=== PATIENT | male | born 1970 | race Caucasian/White ===

== ENCOUNTER 2019-06-01 23:53 | Observation (INO) ==
[2019-06-01] MEDS ORDERED: Isovue-370 500 ML BOTTLE IVP ONE (23:59)
[2019-06-02 00:17] LABS: INR 0.9; Prothrombin Time 10.4 Seconds (9.4-12.1)
[2019-06-02 00:20] LABS: Activated Partial Thrombo Time 36.8 Seconds (26.0-36.0)
[2019-06-02] MEDS ORDERED: Isovue-370 500 ML BOTTLE IVP ONE (00:22)
[2019-06-02 00:31] LABS: Hematocrit 45.9 % (37.5-50.1); Hemoglobin 15.2 g/dL (12.9-16.9); Mean Corpuscular HGB Conc 33.1 g/dL (31.6-35.5); Mean Corpuscular Hemoglobin 28.7 pg (28.0-33.3); Mean Corpuscular Volume 86.6 fL (83.0-100.0); Mean Platelet Volume 9.6 fL (9.4-12.4); Platelet Count 317 K/mcL (140-400); Red Cell Distribution Width 12.7 % (11.5-14.5); White Blood Count 11.7 K/mcL (4.3-11.1)
[2019-06-02 00:32] LABS: BUN/Creatinine Ratio 9 (6-26); Blood Urea Nitrogen 8 mg/dL (6-20); Calcium 9.4 mg/dL (8.6-10.3); Carbon Dioxide 29 mEq/L (23-29); Chloride 102 mEq/L (98-107); Glucose 138 mg/dL (70-105); Osmolality,Calculated 289 (280-300); Potassium 3.5 mEq/L (3.5-5.1); Sodium 139 mEq/L (136-145); eGFR For African Americans > 60 (> 60); eGFR For Non-African Americans > 60 (> 60)
[2019-06-02] MEDS ORDERED: Naloxone 0.4 MG/ML INJ IVP PRN (02:14)
[2019-06-02] MEDS ORDERED: *HR* Promethazine 25 MG/ML VIAL IVP PRN (02:14)
[2019-06-02] MEDS ORDERED: Mag Hydrox/Al Hydrox/Simeth 30 ML UDC PO PRN (02:14)
[2019-06-02] MEDS ORDERED: Acetaminophen 325 MG TABLET PO PRN (02:14)
[2019-06-02] MEDS ORDERED: Ondansetron ODT 4 MG TAB.RAPDIS SL PRN (02:14)
[2019-06-02] MEDS ORDERED: Gadolinium Contrast Agent (WT Based) IV PRN ×2 (02:18→10:45)
[2019-06-02] MEDS ORDERED: Nicotine 14 MG PATCH.TD24 TD PRN (03:18)
[2019-06-02 04:43] LABS: Basophils # 0.1 K/mcL (0.0-0.2); Basophils % 0.4 %; Eosinophils # 0.2 K/mcL (0.0-0.6); Eosinophils % 1.6 %; Hematocrit 41.7 % (37.5-50.1); Hemoglobin 13.9 g/dL (12.9-16.9); Immature Granulocytes % 0.3 % (0-4); Lymphocytes # 3.1 K/mcL (0.6-4.6); Lymphocytes % 26.7 %; Mean Corpuscular HGB Conc 33.3 g/dL (31.6-35.5); Mean Corpuscular Hemoglobin 28.8 pg (28.0-33.3); Mean Corpuscular Volume 86.5 fL (83.0-100.0); Mean Platelet Volume 9.5 fL (9.4-12.4); Monocytes % 8.9 %; Neutrophils # 7.1 K/mcL (1.6-8.9); Platelet Count 264 K/mcL (140-400); Red Blood Count 4.82 M/mcL (4.19-5.50); Red Cell Distribution Width 12.7 % (11.5-14.5); Segmented Neutrophils % 62.1 %; White Blood Count 11.5 K/mcL (4.3-11.1)
[2019-06-02 04:49] LABS: Activated Partial Thrombo Time 36.3 Seconds (26.0-36.0)
[2019-06-02] MEDS: Aspirin 81 MG TAB.CHEW PO SCH (04:49)
[2019-06-02 05:11] LABS: Troponin I < 0.03 ng/mL (< 0.04)
[2019-06-02 05:14] LABS: Alanine Aminotransferase 23 Units/L (7-52); Albumin 3.9 g/dL (3.5-5.7); Albumin/Globulin Ratio 1.8 (1.1-2.2); Alkaline Phosphatase 84 Units/L (34-104); Aspartate Amino Transferase 15 Units/L (13-39); BUN/Creatinine Ratio 9 (6-26); Bilirubin,Total 0.4 mg/dL (0.3-1.0); Blood Urea Nitrogen 7 mg/dL (6-20); Calcium 8.9 mg/dL (8.6-10.3); Carbon Dioxide 26 mEq/L (23-29); Chloride 104 mEq/L (98-107); Chol/HDL Ratio 4.9 (0-4.9); Cholesterol 141 mg/dL (< 200); Globulin 2.2 g/dL (2.4-3.5); Glucose 149 mg/dL (70-105); HDL Cholesterol 29 mg/dL (40-59); LDL Cholesterol,Calculated 74 mg/dL (0-99); Magnesium 1.9 mg/dL (1.6-2.6); Osmolality,Calculated 287 (280-300); Potassium 3.8 mEq/L (3.5-5.1); Sodium 138 mEq/L (136-145); Total Protein 6.1 g/dL (6.4-8.9); Triglycerides 188 mg/dL (< 150); eGFR For African Americans > 60 (> 60); eGFR For Non-African Americans > 60 (> 60)
[2019-06-02 05:24] LABS: Thyroid Stimulating Hormone 0.698 mcIU/mL (0.340-5.600)
[2019-06-02] MEDS ORDERED: D3 PO SCH (09:00)
[2019-06-02] MEDS ORDERED: [UNRECOGNIZED DRUG - OTHER] PO SCH (09:00)
[2019-06-02] MEDS ORDERED: OMEGA PO SCH (09:00)
[2019-06-02] MEDS ORDERED: FISH OIL PO SCH (09:00)
[2019-06-02] MEDS ORDERED: EPA PO SCH (09:00)
[2019-06-02] MEDS ORDERED: DHA PO SCH (09:00)
[2019-06-02] MEDS: Multivit/Ca/Min/Fe/FA 1 TAB TABLET PO SCH (09:14)
[2019-06-02] MEDS: Loratadine 10 MG TABLET PO SCH (09:14)
[2019-06-02] MEDS: Insulin LISPRO 300 UNITS/3 ML VIAL SQ SCH ×3 (09:22→17:02)
[2019-06-02] MEDS: *HR* Heparin 5,000 UNIT/ML VIAL SQ SCH (17:08)
[2019-06-02 18:12] LABS: Folate 15.6 ng/mL (3.0-16.0)
[2019-06-03] MEDS: *HR* Heparin 5,000 UNIT/ML VIAL SQ SCH (05:20)
[2019-06-03] MEDS ORDERED: Regadenoson 0.4 MG/5 ML SYRINGE IVP ONE (06:32)
[2019-06-03] MEDS: Insulin LISPRO 300 UNITS/3 ML VIAL SQ SCH ×2 (08:52→12:39)
[2019-06-03] MEDS: Loratadine 10 MG TABLET PO SCH (10:28)
[2019-06-03] MEDS: Aspirin 81 MG TAB.CHEW PO SCH (10:28)
[2019-06-03] MEDS: Multivit/Ca/Min/Fe/FA 1 TAB TABLET PO SCH (10:28)
[2019-06-03 10:49] VITALS: BP 131/91
== END 2019-06-03 14:48 | disposition home or self-care (01) ==
LOC: EMEROOARM 23:53 → 2NENU 23:53 → SUATTDRO 06-02 02:46 → 2NENU 06-02 03:15
PROVIDERS: ADMIT Family Medicine; ATTEND Internal Medicine